=== PATIENT | female | born 1975 | race Caucasian/White ===

== ENCOUNTER 2016-07-07 18:55 | Emergency (ER) | payer BC ==
[~2016-07-07] VITALS: Ht 172.7 cm; Wt 59.0 kg
[2016-07-07 19:01] VITALS: BP 131/83
[2016-07-07] MEDS ORDERED: BACITRACIN TOP OINT 1 UD PKG TOP ONE (21:15)
== END 2016-07-07 21:27 | disposition home or self-care (01) ==
LOC: ER 18:55
DX: S01.81XA Laceration without foreign body of other part of head, initial encounter (principal); W01.0XXA Fall on same level from slipping, tripping and stumbling without subsequent striking against object, initial encounter; Y93.89 Activity, other specified; Y99.8 Other external cause status; Y92.89 Other specified places as the place of occurrence of the external cause
CPT/HCPCS: 12013

== ENCOUNTER 2021-03-03 11:14 | Emergency (ER) | payer BC ==
[~2021-03-03] VITALS: Ht 162.6 cm; Wt 63.5 kg
[2021-03-03] MEDS ORDERED: THIAMINE 100mg/ml INJ (200mg/2ml VIAL) IV ONE (11:30)
[2021-03-03] MEDS ORDERED: SODIUM CHLORIDE 0.9% 1,000 ML IVB ONE (11:30)
[2021-03-03 12:19] LABS: Basophils # (auto) 0.1 10 ^3/uL (0-0.2); Basophils % (auto) 0.7 % (0.0-2.0); Eosinophils # (auto) 0.1 10 ^3/uL (0-0.8); Eosinophils % (auto) 1.2 % (0.0-7.0); Hematocrit 42.1 % (36.0-46.0); Hemoglobin 14.5 g/dL (12.2-16.2); Lymphocytes # (auto) 2.2 10 ^3/uL (0.4-5.4); Lymphocytes % (auto) 24.7 % (10.0-50.0); Mean Corpuscular Hemoglobin 30.9 pg (28.0-32.0); Mean Corpuscular Hgb Conc. 34.5 g/dL (32.0-36.0); Mean Corpuscular Volume 89.5 fL (80.0-100.0); Monocytes # (auto) 0.5 10 ^3/uL (0-1.3); Neutrophils # (auto) 5.9 10 ^3/uL (1.6-8.6); Neutrophils % (auto) 67.4 % (37.0-80.0); Red Blood Cells 4.71 10^6/uL (4.0-5.20); Red Cell Distribution Width 13.6 % (11.8-14.3); White Blood Cell 8.8 10^3/uL (4.4-10.8)
[2021-03-03 12:25] LABS: Albumin 3.8 g/dL (3.4-5.0); Anion Gap 6 (5-15); Blood Urea Nitrogen 10 mg/dL (7-18); Calcium 8.5 mg/dL (8.5-10.1); Carbon Dioxide 25 mmol/L (21-32); Chloride 112 mmol/L (98-107); Glucose 134 mg/dL (74-106); Potassium 3.6 mmol/L (3.5-5.1); Sodium 143 mmol/L (136-145)
[2021-03-03 12:30] LABS: Alanine Aminotransferase 29 U/L (13-56); Alkaline Phosphatase 73 U/L (45-117); Aspartate Aminotransferase 15 U/L (15-37); BUN/Creatinine Ratio 7.5; Bilirubin, Total 0.1 mg/dL (0.2-1.0); Blood Alcohol < 3.0 mg/dL (0-5); GFR African American 55 mL/min; GFR Non-African American 45 mL/min; Total Protein 7.5 g/dL (6.4-8.2)
[2021-03-03] MEDS ORDERED: NALOXONE HCL 0.4 MG/ML VIAL IV ONE (12:30)
[2021-03-03] MEDS ORDERED: AMMONIA 0.33 ML INHALANT IN ONE (19:45)
[2021-03-03 22:00] LABS: Urine Bacteria NONE SEEN /hpf (None Seen); Urine Blood 3+ /uL (Negative); Urine Mucus FEW (None Seen); Urine Specific Gravity 1.014 (1.001-1.035); Urine WBC 119 /hpf (0 - 5)
[2021-03-03 22:09] LABS: Amphetamine Screen, Urine NEGATIVE (NEGATIVE); Barbiturate Scree,Urine NEGATIVE (NEGATIVE); Benzodiazephine Screen, Urine NEGATIVE (NEGATIVE); Cannabinoid Screen, Urine NEGATIVE (NEGATIVE); Cocaine Screen, Urine NEGATIVE (NEGATIVE); Opiate Scree,Urine NEGATIVE (NEGATIVE); Phencyclidine Screen, Urine NEGATIVE (NEGATIVE)
[2021-03-04] MEDS ORDERED: SODIUM CHLORIDE 0.9% 1,000 ML IV ONE ×2 (06:00)
[2021-03-04] MEDS ORDERED: cefTRIAXone 1GM/50ML D5W 50 ML IV ONE (06:00)
[2021-03-04 07:05] LABS: Lactic Acid w/Reflex 2.8 mmol/L (0.4-2.0)
[2021-03-04 09:07] VITALS: BP 119/70
== END 2021-03-04 19:09 | disposition home or self-care (01) ==
LOC: ER 11:14 → EDBD 11:14 → ER 03-04 14:20
DX: G93.41 Metabolic encephalopathy (principal); N39.0 Urinary tract infection, site not specified; F25.9 Schizoaffective disorder, unspecified
CPT/HCPCS: 36415; 70450; 71045; 80053; 80307; 80320; 81001; 82962; 83605; 84702; 85025; 87040; 93005; 96361; 96365; 96375; 99285; J0696; J2310; J3411; J7030